=== PATIENT | female | born 1970 | race Two or more races ===

== ENCOUNTER 2017-07-26 02:32 | Emergency (ER) | payer BC ==
[~2017-07-26] VITALS: Ht 165.1 cm; Wt 72.6 kg
[2017-07-26 03:08] LABS: Basophils # (auto) 0 uL; Basophils % (auto) 0.4 % (0.0-2.0); Eosinophils # (auto) 0.2 uL; Eosinophils % (auto) 3.5 % (0.0-7.0); Hematocrit 42.2 % (36.0-46.0); Lymphocytes # (auto) 2.8 uL; Lymphocytes % (auto) 41.1 % (10.0-50.0); Mean Corpuscular Hemoglobin 29.8 pg (28.0-32.0); Mean Corpuscular Hgb Conc. 33.2 g/dL (32.0-36.0); Mean Corpuscular Volume 89.8 fL (80.0-100.0); Mean Platelet Volume 7.6 fL (6.9-10.8); Monocytes # (auto) 0.6 uL; Monocytes % (auto) 8.1 % (0.0-12.0); Neutrophils # (auto) 3.2 uL; Neutrophils % (auto) 46.9 % (37.0-80.0); Nucleated Red Blood Cells % 0.1 %; Platelet Count (auto) 252 10^3/uL (140-450); Red Cell Distribution Width 13.2 % (11.8-14.3); White Blood Cell 6.9 10^3/uL (4.4-10.8)
[2017-07-26 03:25] LABS: Albumin 3.9 g/dL (3.4-5.0); Anion Gap 6 (5-15); Blood Urea Nitrogen 18 mg/dL (7-18); Carbon Dioxide 28 mmol/L (21-32); Chloride 104 mmol/L (98-107); Glucose 107 mg/dL (74-106); Magnesium 2.4 mg/dL (1.6-2.6); Potassium 3.8 mmol/L (3.5-5.1); Sodium 138 mmol/L (136-145)
[2017-07-26 03:28] LABS: Aspartate Aminotransferase 18 U/L (15-37); BUN/Creatinine Ratio 21.4; Calcium 8.9 mg/dL (8.5-10.1); GFR African American 93 mL/min; GFR Non-African American 77 mL/min
[2017-07-26 03:33] LABS: Alkaline Phosphatase 57 U/L (45-117); Bilirubin, Total 0.3 mg/dL (0.2-1.0); Total Protein 7.8 g/dL (6.4-8.2)
[2017-07-26] MEDS ORDERED: METHOCARBAMOL 500 MG TAB PO ONE (06:45)
[2017-07-26] MEDS ORDERED: HYDROmorphone HCL 2 MG/ML VL IM ONE (06:45)
[2017-07-26] MEDS ORDERED: ONDANSETRON HCL 4 MG/2 ML VIAL IM ONE (06:45)
[2017-07-26 07:34] VITALS: BP 126/81
[2017-07-26] MEDS ORDERED: PROMETHAZINE HCL 25 MG/ML 1ML IM ONE (08:30)
== END 2017-07-26 08:50 | disposition home or self-care (01) ==
LOC: ER 02:38
DX: M25.512 Pain in left shoulder (principal); M54.12 Radiculopathy, cervical region; M47.892 Other spondylosis, cervical region; G89.29 Other chronic pain
CPT/HCPCS: 36415; 71010; 72040; 73030; 80053; 83735; 84484; 85025; 93005; 96372; 99285; J1170; J2405; J2550